=== PATIENT | female | born 1985 | race Caucasian/White ===

== ENCOUNTER 2019-05-31 08:59 | Emergency (ER) | payer BC, OTHER ==
[2019-05-31 09:04] VITALS: RESP 16; TEMP 97.6
[2019-05-31] MEDS ORDERED: SODIUM CHLORIDE 0.9% 1,000 ML IV STA (09:31)
[2019-05-31] MEDS ORDERED: ONDANSETRON 4 MG/2 ML VIAL IVP STA (09:31)
[2019-05-31] MEDS ORDERED: KETOROLAC 30 MG/ML 1 ML VIAL IVP STA (09:31)
--- NOTE | 2019-05-31 09:35 | ED ---
Abdominal Pain HPI - General Chief Complaint: Abdominal Pain Stated Complaint: abd pain Time Seen by Provider: 05/31/19 09:15 Source: patient Mode of arrival: ambulatory Limitations: no limitations - History of Present Illness Initial Comments: Patient is a 33-year-old female presenting to emergency Department with complaints of abdominal pain that been increasing over the past 2 weeks. Patient states she was having mild abdominal pain 2 weeks ago, went to urgent care and diagnosed her with a UTI with possible kidney infection. Patient was placed on antibiotics and her symptoms did improve. Patient states in the last 24 hours her pain has increased severely. She describes the pain as mostly left sided, upper quadrant. She has been having nausea and vomiting as well. No diarrhea, no fever. She denies any previous abdominal surgeries. She is unsure if she is or not. She does not have any vaginal complaints, no vaginal discharge, dysuria. She's been having regular bowel movements. Patient states she does take [place]'s for back injury and did take one at 8 AM this morning without improvement in her pain. She has no other complaints at this time. Upon arrival to the ER, her vital signs are stable. - Related Data Home Medications Medication Instructions Recorded Confirmed HYDROcodone/APAP 7.5-325MG [[place] 1 tab PO Q4H PRN 05/31/15 05/31/15 7.5-325] Previous Rx's Medication Instructions Recorded Dicyclomine [Bentyl] 20 mg PO QID #20 tablet 05/31/15 Ondansetron Odt [Zofran ODT] 4 mg PO Q8HR PRN #15 tab 05/31/15 Ketorolac [Toradol] 10 mg PO Q8HR #15 tab 05/31/19 Ondansetron Odt [Zofran Odt] 4 mg PO Q8HR PRN #10 tab 05/31/19 Allergies Allergy/AdvReac Type Severity Reaction Status Date / Time No Known Allergies Allergy Verified 05/31/19 09:04 Review of Systems ROS Statement: Those systems with pertinent positive or pertinent negative responses have been documented in the HPI. ROS Other: All systems not noted in ROS Statement are negative. 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 HEAD: Atraumatic, normocephalic. EYES: Pupils equal round and reactive to light, extraocular movements intact, sclera anicteric, conjunctiva are normal. ENT: TMs normal, nares patent, oropharynx clear without exudates. Moist mucous membranes. NECK: Normal range of motion, supple without lymphadenopathy or JVD. LUNGS: Breath sounds clear to auscultation bilaterally and equal. No wheezes rales or rhonchi. HEART: Regular rate and rhythm without murmurs, rubs or gallops. ABDOMEN: Tender to palpation of the left upper quadrants, and left abdomen. No right- sided abdominal pain, no suprapubic or lower quadrant pain.. Soft, normoactive bowel sounds. No guarding, no rebound. No masses appreciated. : Deferred EXTREMITIES: Normal range of motion, no pitting or edema. No clubbing or cyanosis. NEUROLOGICAL: Normal speech, normal gait. SKIN: Warm, Dry, normal turgor, no rashes or lesions noted. Limitations: no limitations Course Vital Signs 05/31/19 05/31/19 09:02 11:45 Temperature 97.6 F 97.6 F Pulse Rate 97 92 Respiratory 16 16 Rate Blood Pressure 118/79 112/70 O2 Sat by Pulse 100 100 Oximetry Medical Decision Making - Medical Decision Making Patient is a 33-year-old female presenting with left-sided, upper abdominal pain that has been intermittent for the last 2 weeks but more severe in the last 24 hours. No previous abdominal surgeries. Vital signs stable upon arrival. Lab work is unremarkable. Urine shows no signs of infection. CT of the abdomen shows no acute abnormalities. Patient was given fluids, pain control, Zofran. She doesn't report improvement and some of her symptoms. I discussed these findings with the patient and that this is most likely viral in nature. Patient did did now mention that she had a abnormal Pap smear performed approximately 6 months ago. She has yet to follow up regarding this abnormality. Patient continues to deny any vaginal complaints or lower abdominal pain. Patient is stable for discharge at this time. I did urge her to follow up with her [facility]. She is in agreement with this plan of care. Patient will be discharged with anti-inflammatories as well as Zofran as needed for nausea. Return parameters were discussed with the patient she verbalized understanding. Case discussed with Dr. Caro. - Lab Data Result diagrams: 05/31/19 09:17 05/31/19 09:17 Lab Results 05/31/19 05/31/19 05/31/19 Range/Units 09:17 09:17 09:17 WBC 10.9 H (3.8-10.6) k/uL RBC 4.82 (3.80-5.40) m/uL Hgb 14.5 (11.4-16.0) gm/dL Hct 43.6 (34.0-46.0) % MCV 90.4 (80.0-100.0) fL MCH 30.1 (25.0-35.0) pg MCHC 33.3 (31.0-37.0) g/dL RDW 11.7 (11.5-15.5) % Plt Count 315 (150-450) k/uL Neutrophils % 64 % Lymphocytes % 25 % Monocytes % 6 % Eosinophils % 2 % Basophils % 1 % Neutrophils # 7.0 (1.3-7.7) k/uL Lymphocytes # 2.7 (1.0-4.8) k/uL Monocytes # 0.6 (0-1.0) k/uL Eosinophils # 0.2 (0-0.7) k/uL Basophils # 0.1 (0-0.2) k/uL Sodium 138 (137-145) mmol/L Potassium 4.1 (3.5-5.1) mmol/L Chloride 106 (98-107) mmol/L Carbon Dioxide 24 (22-30) mmol/L Anion Gap 8 mmol/L BUN 18 H (7-17) mg/dL Creatinine 0.90 (0.52-1.04) mg/dL Est GFR (CKD-EPI)AfAm >90 (>60 ml/min/1.73 sqM) Est GFR (CKD-EPI)NonAf 86 (>60 ml/min/1.73 sqM) Glucose 112 H (74-99) mg/dL Plasma Lactic Acid [place] (0.7-2.0) mmol/L Calcium 9.8 (8.4-10.2) mg/dL Total Bilirubin 0.3 (0.2-1.3) mg/dL AST 26 (14-36) U/L ALT 24 (4-34) U/L Alkaline Phosphatase 81 (38-126) U/L Total Protein 7.8 (6.3-8.2) g/dL Albumin 4.5 (3.5-5.0) g/dL Amylase 52 (30-110) U/L Lipase 100 (23-300) U/L Urine Color Urine Appearance (Clear) Urine pH (5.0-8.0) Ur Specific [place] (1.001-1.035) Urine Protein (Negative) Urine Glucose (UA) (Negative) Urine Ketones (Negative) Urine Blood (Negative) Urine Nitrite (Negative) Urine Bilirubin (Negative) Urine Urobilinogen (<2.0) mg/dL Ur Leukocyte Esterase (Negative) Urine RBC (0-5) /hpf Urine WBC (0-5) /hpf Ur Squamous Epith Cells (0-4) /hpf Urine Bacteria (None) /hpf Urine Mucus (None) /hpf Urine HCG, Qual Not Detected (Not Detectd) 05/31/19 05/31/19 Range/Units 09:17 09:17 WBC (3.8-10.6) k/uL RBC (3.80-5.40) m/uL Hgb (11.4-16.0) gm/dL Hct (34.0-46.0) % MCV (80.0-100.0) fL MCH (25.0-35.0) pg MCHC (31.0-37.0) g/dL RDW (11.5-15.5) % Plt Count (150-450) k/uL Neutrophils % % Lymphocytes % % Monocytes % % Eosinophils % % Basophils % % Neutrophils # (1.3-7.7) k/uL Lymphocytes # (1.0-4.8) k/uL Monocytes # (0-1.0) k/uL Eosinophils # (0-0.7) k/uL Basophils # (0-0.2) k/uL Sodium (137-145) mmol/L Potassium (3.5-5.1) mmol/L Chloride (98-107) mmol/L Carbon Dioxide (22-30) mmol/L Anion Gap mmol/L BUN (7-17) mg/dL Creatinine (0.52-1.04) mg/dL Est GFR (CKD-EPI)AfAm (>60 ml/min/1.73 sqM) Est GFR (CKD-EPI)NonAf (>60 ml/min/1.73 sqM) Glucose (74-99) mg/dL Plasma Lactic Acid [place] 1.2 (0.7-2.0) mmol/L Calcium (8.4-10.2) mg/dL Total Bilirubin (0.2-1.3) mg/dL AST (14-36) U/L ALT (4-34) U/L Alkaline Phosphatase (38-126) U/L Total Protein (6.3-8.2) g/dL Albumin (3.5-5.0) g/dL Amylase (30-110) U/L Lipase (23-300) U/L Urine Color Yellow Urine Appearance Clear (Clear) Urine pH 6.5 (5.0-8.0) Ur Specific [place] 1.027 (1.001-1.035) Urine Protein Trace H (Negative) Urine Glucose (UA) Negative (Negative) Urine Ketones Negative (Negative) Urine Blood Negative (Negative) Urine Nitrite Negative (Negative) Urine Bilirubin Negative (Negative) Urine Urobilinogen <2.0 (<2.0) mg/dL Ur Leukocyte Esterase Small H (Negative) Urine RBC 1 (0-5) /hpf Urine WBC 1 (0-5) /hpf Ur Squamous Epith Cells 2 (0-4) /hpf Urine Bacteria Rare H (None) /hpf Urine Mucus Few H (None) /hpf Urine HCG, Qual (Not Detectd) Disposition Clinical Impression: Abdominal pain, Gastroenteritis Disposition: HOME SELF-CARE Condition: Stable Instructions (If sedation given, give patient instructions): Abdominal Pain (ED) Additional Instructions: Please return to the Emergency Department if symptoms worsen or any other concerns. May alternate at home pain medication with ibuprofen. Take Zofran as needed for nausea. Follow-up with PCP/ OBGYN as discussed. Prescriptions: Ketorolac [Toradol] 10 mg PO Q8HR #15 tab Ondansetron Odt [Zofran Odt] 4 mg PO Q8HR PRN #10 tab PRN Reason: Nausea Is patient prescribed a controlled substance at d/c from ED?: No Referrals: None,Stated [Primary Care Provider] - 1-2 days Ilana Sahu MD [STAFF PHYSICIAN] - 1-2 days
[2019-05-31 09:40] LABS: Basophils # (A) 0.1 k/uL (0-0.2); Basophils % (A) 1 %; Eosinophils # (A) 0.2 k/uL (0-0.7); Eosinophils % (A) 2 %; HCT 43.6 % (34.0-46.0); HGB 14.5 gm/dL (11.4-16.0); Lymphocytes # (A) 2.7 k/uL (1.0-4.8); Lymphocytes % (A) 25 %; MCH 30.1 pg (25.0-35.0); MCHC 33.3 g/dL (31.0-37.0); MCV 90.4 fL (80.0-100.0); Mean Platelet Volume 8.1; Monocytes # (A) 0.6 k/uL (0-1.0); Monocytes % (A) 6 %; Neutrophils % (A) 64 %; Platelet Count 315 k/uL (150-450); RBC 4.82 m/uL (3.80-5.40); RDW 11.7 % (11.5-15.5); WBC 10.9 k/uL (3.8-10.6)
[2019-05-31 09:47] LABS: Appearance,Urine Clear (Clear); Bacteria,Urine Rare /hpf; Bilirubin,Urine Negative (Negative); Blood,Urine Negative (Negative); Color,Urine Yellow; Glucose,Urine (UA) Negative (Negative); Ketones,Urine Negative (Negative); Leukocyte Esterase,Urine Small (Negative); Mucus,Urine Few /hpf; Nitrite,Urine Negative (Negative); PH, Urine 6.5 (5.0-8.0); Protein,Urine Trace (Negative); RBC,Urine 1 /hpf (0-5); Specific Gravity,Urine 1.027 (1.001-1.035); Squamous Epithelial Cell,Urine 2 /hpf (0-4); Urobilinogen,Urine <2.0 mg/dL (<2.0); WBC,Urine 1 /hpf (0-5)
[2019-05-31 09:50] LABS: ALT 24 U/L (4-34); AST 26 U/L (14-36); African American GFR (CKD) >90 (>60 ml/min/1.73 sqM); Albumin 4.5 g/dL (3.5-5.0); Alkaline Phosphatase 81 U/L (38-126); Amylase 52 U/L (30-110); Anion Gap 8 mmol/L; Blood Urea Nitrogen 18 mg/dL (7-17); Calcium 9.8 mg/dL (8.4-10.2); Carbon Dioxide 24 mmol/L (22-30); Chloride 106 mmol/L (98-107); Glucose 112 mg/dL (74-99); Non-African American GFR(CKD) 86 (>60 ml/min/1.73 sqM); Potassium 4.1 mmol/L (3.5-5.1); Sodium 138 mmol/L (137-145); Total Bilirubin 0.3 mg/dL (0.2-1.3); Total Protein 7.8 g/dL (6.3-8.2)
[2019-05-31] MEDS ORDERED: MORPHINE SULFATE 4 MG/ML SYRINGE IVP STA (10:10)
--- NOTE | 2019-05-31 10:31 | CT ---
EXAMINATION TYPE: CT abdomen pelvis w con DATE OF EXAM: 05/31/2019 REFERENCE: Previous examination dated 05/31/2015. HISTORY: abdominal pain, acute, nonlocalized HISTORY: Left sided mid Abdominal pain for 2 weeks. Severe pain today. CT DLP: 1089.7 mGy Automated exposure control for dose reduction was used. TECHNIQUE: Helical acquisition through the abdomen and pelvis was obtained following the oral ingesti on of without Oral Contrast and following intravenous administration of 100 mL of Isovue 300. The minnie a was reformatted in axial, coronal and sagittal projections. FINDINGS: Visualized portions of the lungs are clear. There is no pleural or pericardial fluid. The heart is not enlarged. Within the abdomen, the liver, spleen and gallbladder are normal. Both adrenal glands are normal. Both kidneys demonstrate function and appear morphologically normal. The pancreas is unremarkable. There is no significant retroperitoneal, iliac or inguinal adenopathy. There is follicular change in both ovaries. The uterus is unremarkable. The bladder is unremarkable. There is no significant diverticular change and there is no radiographic evidence of diverticulitis. The appendix is normal. Small bowel loops are normal in caliber. There is no free air or free fluid seen. No bony lesion is seen. IMPRESSION: NORMAL CT SCAN OF THE ABDOMEN AND PELVIS. I DO NOT SEE A CAUSE FOR THE PATIENT'S CLINICAL SYNDROME.
[2019-05-31 11:47] VITALS: BP 112/70; PULSE 92
== END 2019-05-31 11:46 | disposition home or self-care (01) ==
LOC: EC 08:59
DX: K52.9 Noninfective gastroenteritis and colitis, unspecified (principal)
CPT/HCPCS: 99284; 96374; 96375 ×2; 96361; 36415; 80053; 82150; 83605; 83690; 85025; 81001; 81025; 74177; J2270; J2405; J1885; Q9967

== ENCOUNTER → 2021-04-07 | Outpatient (CLI) | payer OTHER ==
--- NOTE | 2021-04-07 16:48 | MR ---
EXAMINATION TYPE: MR knee RT wo con DATE OF EXAM: 04/07/2021 COMPARISON: Plain film 03/07/2021 HISTORY: Whole right knee pain and swelling for 4 years due to accident breaking right ankle. TECHNIQUE: Multiplanar, multisequence imaging of the right knee is performed without IV contrast. FINDINGS: MEDIAL MENISCUS: Posterior horn the medial meniscus shows some irregular signal, suggestion of some l inear increased signal extending to the undersurface on sagittal image #8 LATERAL MENISCUS: Anterior and posterior horns are intact without tear. CRUCIATE LIGAMENTS: The anterior and posterior cruciate ligaments are intact and unremarkable. COLLATERAL LIGAMENTS: Some mild increase signal along the medial collateral ligament could be related to strain. EXTENSOR MECHANISM: Visualized quadriceps and patellar tendons are intact. EFFUSION: Minimal suprapatellar fluid present POPLITEAL CYST: No popliteal/medina cyst. 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 OTHER: There is some edema present at anterior to the patellar tendon. IMPRESSION: Chondromalacia patella. Difficult to exclude a tear the posterior horn of the medial meniscus, possib le strain of the medial collateral ligament, soft tissue edema.
== END ==
LOC: RADMRIMAIN 15:43
PROVIDERS: ATTEND Orthopaedic Surgery
DX: M22.41 Chondromalacia patellae, right knee (principal)

== ENCOUNTER → 2021-06-05 | Outpatient (CLI) | payer BC, OTHER ==
--- NOTE | 2021-06-06 01:07 | MR ---
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 CONTRAST: Standard multiplanar, multisequence MRI departmental protocol images were obtained without contrast a nd with 9.5 mL intravenous Gadavist gadolinium contrast. The cervical vertebra have normal alignment. Disc spaces are fairly normal. There is no cervical disc herniation. Cervical spinal cord has normal signal pattern. There is no edema. Posterior elements ar e intact. Brainstem is intact. Cerebellum appears intact. The thoracic vertebra have normal alignment. There is no significant compression deformity. There is minor anterior spurring in the midthoracic spine. Thoracic spinal cord has normal signal pattern. The re is no edema. There is no evidence of thoracic spinal stenosis. There is no thoracic paraspinal mas s. The thoracic spinal canal is widely patent. There is no evidence of a syrinx. Thoracic neural fora sharri appear normal. The lumbar vertebrae have normal spacing and alignment. There is no compression fracture. There is no evidence of any significant disc bulging. Lumbar spinal canal is fairly normal. The lumbar nerve chau ts appear normal. Neural foramina are widely patent. There is no lumbar paraspinal mass. The visualiz ed sacroiliac joints appear intact. The contrast images show no pathologic enhancement. IMPRESSION: Negative MR scan of the cervical thoracic and lumbar spine. No evidence of spinal stenosis or disc he rniation. No fracture. No evidence of a mass.
== END | disposition home or self-care (01) ==
LOC: RADMRIMAIN 17:44
PROVIDERS: ATTEND Orthopaedic Surgery
DX: M54.2 Cervicalgia (principal); M54.50 Low back pain, unspecified; M54.6 Pain in thoracic spine
CPT/HCPCS: 72156; 72157; 72158; A9585

== ENCOUNTER → 2021-07-13 | Day surgery (SDC) | payer BC, OTHER ==
[2021-07-12 09:23] VITALS: BMI 32.1
--- NOTE | 2021-07-12 20:50 | HP ---
HISTORY AND PHYSICAL DATE OF SURGERY: 07/13/2021 Bertha Last is a 35-year-old patient seen with progressive right knee pain. We discussed options with her. She elected to proceed with right knee arthroscopy. Consent was obtained. PAST MEDICAL HISTORY: Chronic low back pain. PAST SURGICAL HISTORY: Mandibular surgery and knee surgery. DAILY MEDICATIONS: Hydrocodone, Motrin. ALLERGIES: NONE KNOWN. SOCIAL HISTORY: She denies current tobacco use. PHYSICAL EVALUATION OF THE RIGHT KNEE: Her range of motion is zero to 130. Mild effusion. Tenderness along the medial joint line. Positive medial Sariah's. Ligaments stable. Hip rotation without pain. Distal neurovascular exam is intact. Radiographs of the right knee revealed no abnormality. MRI right knee revealed medial meniscal tear as well as chondromalacia. IMPRESSION: 1. Internal derangement of right knee with medial meniscal tear. 2. Chronic low back pain. 3. Chronic opioid use. PLAN: Right knee arthroscopy with partial medial meniscectomy and debridement. MMODL / IJN: [id number] /
[~2021-07-13] MED LIST: DEXAMETHASONE SOD PHOSPHATE 4 MG/ML 1 ML VIAL IV ONE; HYDROmorphone 0.5 MG/0.5 ML SYRINGE IVP PRN; LACTATED RINGERS 1,000 ML IV SCH; LIDOCAINE 1% (10MG/ML) FOR IV START INTRADERMA PRN; MIDAZOLAM 2 MG/2 ML VIAL IV PRN; ONDANSETRON 4 MG/2 ML VIAL IVP ONE
[2021-07-13 14:42] VITALS: BP 150/95; PULSE 78; RESP 18; TEMP 97.8
== END ==
LOC: OR 13:50
PROVIDERS: ATTEND Orthopaedic Surgery
DX: M23.91 Unspecified internal derangement of right knee (principal); Z53.8 Procedure and treatment not carried out for other reasons; G89.29 Other chronic pain; M54.50 Low back pain, unspecified; Z79.891 Long term (current) use of opiate analgesic; Z79.899 Other long term (current) drug therapy

== ENCOUNTER 2021-07-30 13:23 | Emergency (ER) | payer BC, OTHER ==
[2021-07-30 13:45] VITALS: TEMP 98
[2021-07-30 14:32] LABS: Appearance,Urine Clear (Clear); Bacteria,Urine Occasional /hpf; Bilirubin,Urine Negative (Negative); Blood,Urine Moderate (Negative); Color,Urine Yellow; Glucose,Urine (UA) Negative (Negative); Ketones,Urine 2+ (Negative); Leukocyte Esterase,Urine Small (Negative); Mucus,Urine Few /hpf; Nitrite,Urine Negative (Negative); PH, Urine 6.5 (5.0-8.0); Protein,Urine Trace (Negative); RBC,Urine 7 /hpf (0-5); Specific Gravity,Urine 1.024 (1.001-1.035); Squamous Epithelial Cell,Urine 2 /hpf (0-4); Urobilinogen,Urine <2.0 mg/dL (<2.0); WBC,Urine 7 /hpf (0-5)
--- NOTE | 2021-07-30 14:41 | ED ---
Female Urogenital HPI - General Chief complaint: Vaginal Bleeding Stated complaint: Abd pain Time Seen by Provider: 07/30/21 14:15 Source: patient, RN notes reviewed Mode of arrival: ambulatory Limitations: no limitations - History of Present Illness Initial comments: This is a 36-year-old female who presents to the emergency department with abdominal pain and vaginal bleeding. States that this began 2 days ago. The pain is in the left lower quadrant. States that the pain has continued to get worse. Believes that she is approximately 6 weeks . She has had one in the past and had an . She is hoping to proceed with this if it is viable. She has not yet had an appointment with her OB, Dr. Gonzalez. Denies fevers, chills, or vomiting, but does report nausea. Aside from this recent nausea, she has not experienced any morning sickness. She contacted her pillowcase maker's office last week regarding the pain, and was told by the nurse that the left lower quadrant pain is to be expected. She has not taken anything for this pain, as she was not sure what would be safe to take in . MD Complaint: vaginal bleeding Onset/Timin -: days(s) Quality: cramping, sharp, stabbing Consistency: constant Improves with: none Worsens with: none Patient : Yes Number of weeks : 6 - Related Data Home Medications Medication Instructions Recorded Confirmed No Known Home Medications 07/30/21 07/30/21 Allergies Allergy/AdvReac Type Severity Reaction Status Date / Time No Known Allergies Allergy Verified 07/30/21 15:35 Review of Systems ROS Statement: Those systems with pertinent positive or pertinent negative responses have been documented in the HPI. ROS Other: All systems not noted in ROS Statement are negative. Constitutional: Denies: fever, chills ENT: Denies: ear pain, throat pain Respiratory: Denies: cough, dyspnea Cardiovascular: Denies: chest pain, palpitations Gastrointestinal: Reports: abdominal pain. Denies: nausea, vomiting, diarrhea Genitourinary: Reports: other (vaginal bleeding). 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 Absent: respiratory distress, wheezes, rales, rhonchi, stridor Cardiovascular Exam: Present: regular rate, normal rhythm, normal heart sounds. Absent: systolic murmur, diastolic murmur, rubs, gallop, clicks GI/Abdominal exam: Present: soft, tenderness (bilateral lower quadrants), normal bowel sounds. Absent: distended, guarding Neurological exam: Present: alert, oriented X3, CN II-XII intact Psychiatric exam: Present: normal affect, normal mood Skin exam: Present: warm, dry, intact, normal color. Absent: rash Course Vital Signs 07/30/21 07/30/21 07/30/21 13:42 15:44 18:28 Temperature 98 F Pulse Rate 99 82 76 Respiratory 16 18 18 Rate Blood Pressure 136/89 128/86 125/70 O2 Sat by Pulse 100 100 97 Oximetry Medical Decision Making - Medical Decision Making This is a 36-year-old female who presents to the emergency department with 2 days of LLQ abdominal pain and vaginal bleeding. Patient states she is 6 weeks , but had not yet seen an pillowcase maker. Obstetrics ultrasound obtained, and confirmed a single live IUP. It did also note a complex right ovarian cyst. I spoke with Dr. Sahu regarding the complex cyst. She states that this will probably need to be reevaluated at 12 weeks and then again at 18 weeks, but no additional workup is needed at this time. The biggest concern with ovarian cysts in is ovarian torsion, most common during the first trimester, and the patient will need strict return precautions regarding this possibility. Lab work revealed a mildly elevated WBC count, which is a normal finding in with her body under stress. Also discussed that abdominal pain is rather common in . The pain at this point is the most severe on the left, however the complex cyst is on the right. Patient requests treatment for nausea and pain. Discussed that first like treatment for nausea and vomiting in is Unisom and B6, however unisom will cause her to be sleepy. States that she needs to drive home and does not want to take unisom. We also discussed Reglan, which is a second line treatment. It has not been shown to have any adverse effects on in the first trimester, however more testing is still needed. Patient verbalizes understanding would like try the B6 and Reglan, both of which were administered in the emergency department. Tylenol administered for pain. Advised the patient that Tylenol is safe in , however ibuprofen is not and should be avoided. Patient advised to contact her pillowcase maker's office tomorrow and request a sooner appointment for an ER follow-up. When the patient used the restroom in the ER, she did not notice any blood in the urine or when wiping. Patient declines pelvic exam at this time, and will follow up with OB for this. Patient was eating Jello and drinking apple juice without difficulty before discharge. Return precautions reviewed in depth, especially regarding ovarian torsion, the patient is instructed to return to the emergency department if symptoms worsen, including but not limited to, increasing pain, increasing bleeding, or uncontr ollable nausea. Patient verbalized understanding. This case was discussed in detail with the attending ED physician. Presentation, findings, and treatment plan discussed in detail as well. - Lab Data Result diagrams: 07/30/21 14:38 07/30/21 14:38 Lab Results 07/30/21 07/30/21 07/30/21 Range/Units 14:04 14:04 14:38 WBC 13.6 H (3.8-10.6) k/uL RBC 5.02 (3.80-5.40) m/uL Hgb 15.8 (11.4-16.0) gm/dL Hct 44.7 (34.0-46.0) % MCV 89.1 (80.0-100.0) fL MCH 31.5 (25.0-35.0) pg MCHC 35.3 (31.0-37.0) g/dL RDW 11.8 (11.5-15.5) % Plt Count 304 (150-450) k/uL MPV 8.4 Neutrophils % 81 % Lymphocytes % 12 % Monocytes % 4 % Eosinophils % 1 % Basophils % 1 % Neutrophils # 11.0 H (1.3-7.7) k/uL Lymphocytes # 1.6 (1.0-4.8) k/uL Monocytes # 0.6 (0-1.0) k/uL Eosinophils # 0.1 (0-0.7) k/uL Basophils # 0.1 (0-0.2) k/uL PT (9.0-12.0) sec INR (<1.2) APTT (22.0-30.0) sec Sodium (137-145) mmol/L Potassium (3.5-5.1) mmol/L Chloride (98-107) mmol/L Carbon Dioxide (22-30) mmol/L Anion Gap mmol/L BUN (7-17) mg/dL Creatinine (0.52-1.04) mg/dL Est GFR (CKD-EPI)AfAm (>60 ml/min/1.73 sqM) Est GFR (CKD-EPI)NonAf (>60 ml/min/1.73 sqM) Glucose (74-99) mg/dL Calcium (8.4-10.2) mg/dL Total Bilirubin (0.2-1.3) mg/dL AST (14-36) U/L ALT (4-34) U/L Alkaline Phosphatase (38-126) U/L Total Protein (6.3-8.2) g/dL Albumin (3.5-5.0) g/dL HCG, Quant mIU/mL Urine Color Yellow Urine Appearance Clear (Clear) Urine pH 6.5 (5.0-8.0) Ur Specific [place] 1.024 (1.001-1.035) Urine Protein Trace H (Negative) Urine Glucose (UA) Negative (Negative) Urine Ketones 2+ H (Negative) Urine Blood Moderate H (Negative) Urine Nitrite Negative (Negative) Urine Bilirubin Negative (Negative) Urine Urobilinogen <2.0 (<2.0) mg/dL Ur Leukocyte Esterase Small H (Negative) Urine RBC 7 H (0-5) /hpf Urine WBC 7 H (0-5) /hpf Ur Squamous Epith Cells 2 (0-4) /hpf Urine Bacteria Occasional H (None) /hpf Urine Mucus Few H (None) /hpf Urine HCG, Qual Detected (Not Detectd) Blood Type Blood Type Recheck Bld Type Recheck Status 07/30/21 07/30/21 07/30/21 Range/Units 14:38 14:38 15:13 WBC (3.8-10.6) k/uL RBC (3.80-5.40) m/uL Hgb (11.4-16.0) gm/dL Hct (34.0-46.0) % MCV (80.0-100.0) fL MCH (25.0-35.0) pg MCHC (31.0-37.0) g/dL RDW (11.5-15.5) % Plt Count (150-450) k/uL MPV Neutrophils % % Lymphocytes % % Monocytes % % Eosinophils % % Basophils % % Neutrophils # (1.3-7.7) k/uL Lymphocytes # (1.0-4.8) k/uL Monocytes # (0-1.0) k/uL Eosinophils # (0-0.7) k/uL Basophils # (0-0.2) k/uL PT 10.1 (9.0-12.0) sec INR 0.9 (<1.2) APTT 25.2 (22.0-30.0) sec Sodium 135 L (137-145) mmol/L Potassium 4.2 (3.5-5.1) mmol/L Chloride 102 (98-107) mmol/L Carbon Dioxide 21 L (22-30) mmol/L Anion Gap 12 mmol/L BUN 13 (7-17) mg/dL Creatinine 0.68 (0.52-1.04) mg/dL Est GFR (CKD-EPI)AfAm >90 (>60 ml/min/1.73 sqM) Est GFR (CKD-EPI)NonAf >90 (>60 ml/min/1.73 sqM) Glucose 91 (74-99) mg/dL Calcium 10.1 (8.4-10.2) mg/dL Total Bilirubin 0.6 (0.2-1.3) mg/dL AST 29 (14-36) U/L ALT 30 (4-34) U/L Alkaline Phosphatase 83 (38-126) U/L Total Protein 8.7 H (6.3-8.2) g/dL Albumin 4.9 (3.5-5.0) g/dL HCG, Quant 29719.9 mIU/mL Urine Color Urine Appearance (Clear) Urine pH (5.0-8.0) Ur Specific [place] (1.001-1.035) Urine Protein (Negative) Urine Glucose (UA) (Negative) Urine Ketones (Negative) Urine Blood (Negative) Urine Nitrite (Negative) Urine Bilirubin (Negative) Urine Urobilinogen (<2.0) mg/dL Ur Leukocyte Esterase (Negative) Urine RBC (0-5) /hpf Urine WBC (0-5) /hpf Ur Squamous Epith Cells (0-4) /hpf Urine Bacteria (None) /hpf Urine Mucus (None) /hpf Urine HCG, Qual (Not Detectd) Blood Type O Positive Blood Type Recheck No Previous Record Bld Type Recheck Status ABR ONLY - Radiology Data Radiology results: report reviewed, image reviewed Disposition Clinical Impression: 6 weeks gestation of , Complex cyst of right ovary Disposition: HOME SELF-CARE Instructions (If sedation given, give patient instructions): Nausea and Vomiting in (ED), (ED), at 7 to 10 Weeks (ED) Additional Instructions: Return to the emergency department if you develop symptoms including but not limited to, increasing pain, sudden or sharp onset of different pain, especially on the right side with the complex cyst, fevers/chills, or uncontrollable nausea/vomiting. Contact your pillowcase maker's office for a sooner appointment/ER follow-up. Follow-up with your primary care provider in 1 to 2 days. Vitamin B6 and Unisom advised for nausea and vomiting in . Is patient prescribed a controlled substance at d/c from ED?: No Referrals: Deanna Haley MD [Primary Care Provider] - 1-2 days
[2021-07-30 14:48] LABS: Basophils # (A) 0.1 k/uL (0-0.2); Basophils % (A) 1 %; Eosinophils # (A) 0.1 k/uL (0-0.7); Eosinophils % (A) 1 %; HCT 44.7 % (34.0-46.0); HGB 15.8 gm/dL (11.4-16.0); Lymphocytes # (A) 1.6 k/uL (1.0-4.8); Lymphocytes % (A) 12 %; MCH 31.5 pg (25.0-35.0); MCHC 35.3 g/dL (31.0-37.0); MCV 89.1 fL (80.0-100.0); Mean Platelet Volume 8.4; Monocytes # (A) 0.6 k/uL (0-1.0); Monocytes % (A) 4 %; Neutrophils % (A) 81 %; Platelet Count 304 k/uL (150-450); RBC 5.02 m/uL (3.80-5.40); RDW 11.8 % (11.5-15.5); WBC 13.6 k/uL (3.8-10.6)
[2021-07-30 15:00] LABS: ALT 30 U/L (4-34); AST 29 U/L (14-36); African American GFR (CKD) >90 (>60 ml/min/1.73 sqM); Albumin 4.9 g/dL (3.5-5.0); Alkaline Phosphatase 83 U/L (38-126); Anion Gap 12 mmol/L; Blood Urea Nitrogen 13 mg/dL (7-17); Calcium 10.1 mg/dL (8.4-10.2); Carbon Dioxide 21 mmol/L (22-30); Chloride 102 mmol/L (98-107); Glucose 91 mg/dL (74-99); Non-African American GFR(CKD) >90 (>60 ml/min/1.73 sqM); Potassium 4.2 mmol/L (3.5-5.1); Sodium 135 mmol/L (137-145); Total Bilirubin 0.6 mg/dL (0.2-1.3); Total Protein 8.7 g/dL (6.3-8.2)
[2021-07-30 15:06] LABS: INR 0.9 (<1.2); Partial Thromboplastin Time 25.2 sec (22.0-30.0); Prothrombin Time 10.1 sec (9.0-12.0)
[2021-07-30] MEDS ORDERED: SODIUM CHLORIDE 0.9% 1,000 ML IV ONE (15:27)
[2021-07-30 15:43] LABS: HCG,Quantitative Serum 44926.9 mIU/mL
--- NOTE | 2021-07-30 15:44 | US ---
EXAMINATION TYPE: Transabdominal DATE OF EXAM: 07/30/2021 3:15 PM COMPARISON: NONE CLINICAL HISTORY: ab pain/vaginal bleeding. pelvic pain. spotting for 1 week EXAM PERFORMED: Transvaginal (TV) and Transabdominal (TA) EXAM MEASUREMENTS: GESTATIONAL AGE / DATING Physician Established: Not yet established Dates by LMP: (6 weeks/4 days) EDC: 03/21/22 Dates by First Scan: No previous this is first scan Dates by Current Scan for: (6 weeks/4 days) EDC: 03/21/22 MATERNAL ANATOMY Uterus: 8.2 x 4.7 x 5.3cm Right adnexa/ Right Ovary: complex/solid/heterogeneous area right adnexa = 5.9 x 2.9 x 4.1cm ?? enlar ged right ovary vs. other etiology Left Ovary: 3.1 x 1.8 x 2.1cm - cystic area = 1.5 x .2cm Post CDS / left Adnexa: appears wnl Presence of free fluid: no GESTATION / SURVEY CRL: 0.7cm (6 weeks/4 days) Yolk Sac (normal less than 6mm): 0.3cm Heart Rate: 123 bpm Rhythm: Normal IUP: Viable IUP Date of LMP: 06/14/21 Beta HcG (if available): Not available at this time Anteverted uterus. Single live intrauterine gestation as gestational sac, yolk sac, and pole ar e present. No free fluid in pelvic cul-de-sac. Left ovary is seen. Left ovary has 1.5 cm thin-walled cyst possible corpus luteal cyst. Right adnexa shows heterogeneous structure suspected asymmetrically enlarged right ovary. IMPRESSION: Single live intrauterine gestation is confirmed, mean crown-rump length is 0.7 cm corresp onding to 6 week 4 day old fetus. Consider serial beta hCG and ultrasound follow-up based on clinical correlation.
[2021-07-30 16:05] VITALS: RESP 18
[2021-07-30] MEDS ORDERED: ACETAMINOPHEN TAB 325 MG TAB PO STA (16:58)
[2021-07-30] MEDS ORDERED: METOCLOPRAMIDE 5 MG/ML 2 ML VIAL IVP STA (16:58)
[2021-07-30] MEDS ORDERED: PYRIDOXINE 100 MG/ML 1 ML VIAL IVP ONE (16:58)
[2021-07-30 18:29] VITALS: BP 125/70; PULSE 76
== END 2021-07-30 18:32 | disposition home or self-care (01) ==
LOC: EC 13:23
DX: O34.81 Maternal care for other abnormalities of pelvic organs, first trimester (principal); N83.291 Other ovarian cyst, right side; Z3A.01 Less than 8 weeks gestation of pregnancy
CPT/HCPCS: 99284; 96374; 96375; 96361; 36415; 86900; 86901; 80053; 85025; 85610; 85730; 81001; 81025; 84702; 76801; 76817; J3415; J2765

== ENCOUNTER → 2022-05-18 | Outpatient (CLI) | payer OTHER ==
--- NOTE | 2022-05-18 11:12 | XR ---
EXAM TYPE: LUMBAR SPINE X RAY SERIES COMPARISON: NONE HISTORY: Pain TECHNIQUE: 4 views are submitted. FINDINGS: Alignment is anatomic. The pedicles are intact. The transverse processes are intact. There is no s pondylolysis or spondylolisthesis. Facet arthropathy L4-5 and L5-S1. IMPRESSION: 1. Facet arthropathy L4-5 and L5-S1..
== END | disposition home or self-care (01) ==
LOC: RADXRMAIN 10:11
PROVIDERS: ATTEND Physical Medicine & Rehabilitation
DX: M47.817 Spondylosis without myelopathy or radiculopathy, lumbosacral region (principal)
CPT/HCPCS: 72110

== ENCOUNTER 2023-03-18 06:07 | Inpatient (IN) | payer OTHER ==
[2023-03-18] MEDS ORDERED: CITRIC ACID-SODIUM CITRATE 15 ML CUP PO ONE (06:23)
[2023-03-18] MEDS ORDERED: OXYTOCIN 10 UNIT/ML 1 ML VIAL IM PRN (06:23)
[2023-03-18] MEDS ORDERED: miSOPROStoL 200 MCG TAB PO PRN (06:23)
[2023-03-18] MEDS ORDERED: CARBOPROST TROMETHAMINE 250 MCG/ML 1 ML AMP IM PRN (06:23)
[2023-03-18] MEDS ORDERED: TRANEXAMIC 1,000 MG/100ML-NACL 1,000 MG in EMPTY BAG 1 BAG IV PRN (06:23)
[2023-03-18] MEDS ORDERED: METHYLERGONOVINE 0.2 MG/ML 1 ML AMP IM PRN (06:23)
[2023-03-18 06:55] LABS: Glucose,Whole Blood 82 mg/dL (70-110)
[2023-03-18 07:17] LABS: Basophils # (A) 0.1 k/uL (0-0.2); Basophils % (A) 1 %; Eosinophils # (A) 0.1 k/uL (0-0.7); Eosinophils % (A) 1 %; HCT 38.3 % (34.0-46.0); HGB 13.2 gm/dL (11.4-16.0); Lymphocytes # (A) 2.6 k/uL (1.0-4.8); Lymphocytes % (A) 20 %; MCH 30.2 pg (25.0-35.0); MCHC 34.4 g/dL (31.0-37.0); Mean Platelet Volume 10.5; Monocytes # (A) 0.7 k/uL (0-1.0); Monocytes % (A) 6 %; Neutrophils # (A) 9.2 k/uL (1.3-7.7); Neutrophils % (A) 71 %; Platelet Count 219 k/uL (150-450); RBC 4.35 m/uL (3.80-5.40); RDW 12.7 % (11.5-15.5); WBC 12.9 k/uL (3.8-10.6)
[2023-03-18] MEDS: LACTATED RINGERS 1,000 ML IV SCH ×5 (07:24→23:55)
[2023-03-18] MEDS ORDERED: DEXAMETHASONE SOD PHOSPHATE 4 MG/ML 1 ML VIAL ONE (08:00)
[2023-03-18] MEDS ORDERED: OXYTOCIN 30 UNITS/500 ML NS BAG IV ONE (08:00)
[2023-03-18] MEDS ORDERED: KETOROLAC 15 MG/ML 1 ML VIAL ONE (08:00)
[2023-03-18] MEDS ORDERED: ONDANSETRON 4 MG/2 ML VIAL ONE (08:00)
[2023-03-18] MEDS ORDERED: fentaNYL (PF) 50 MCG/ML 2 ML AMP ONE (08:00)
[2023-03-18] MEDS ORDERED: MORPHINE SULFATE (PF) 0.3 MG/0.3 ML SYR ONE (08:00)
[2023-03-18] MEDS ORDERED: diphenhydrAMINE 50 MG/ML 1 ML VIAL IVP PRN ×3 (09:09→09:37)
[2023-03-18] MEDS ORDERED: NALOXONE 0.4 MG/ML 1 ML VIAL IV PRN ×2 (09:09→09:37)
[2023-03-18] MEDS ORDERED: ONDANSETRON 4 MG/2 ML VIAL IVP PRN ×2 (09:09→09:37)
--- NOTE | 2023-03-18 09:22 | P.HPOB ---
History of Present Illness H&P Date: 03/18/23 Chief Complaint: Schedueled primary with bilateral salpingectomy Ms. Last is a 37 year old at 39 weeks and 0 days with EDC of 03/25/2023 (by LMP consistent with 20 week US) who presents for scheduled primary section for breech presentation. The has been complicated by advanced maternal age, iron deficiency anemia, and insulin-co ntrolled gestational diabetes (regimen was 15 units of Novolin N qHS). On most recent growth ultrasound at 37 weeks the fetus was measuring in the 57%ile for weight. Obstetric history: 2 VTOP work-up: blood type O positive, antibody negative, rubella immune, VDRL non-reactive, HBsAg negative, HIV negative, HCV Ab reactive > Hep C RNA Quant not detected, gonorrhea negative, chlamydia negative, failed 1 and 3 hour GTT, GBS positive. s/p TDap on 12/24/2022. 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 Past Anesthesia/Blood Transfusion Reactions: No Reported Reaction Past Psychological History: No Psychological Hx Reported Smoking Status: Never smoker Past Alcohol Use History: None Reported Past Drug Use History: None Reported - Past Family History Mother Family Medical History: Cancer Medications and Allergies Home Medications Medication Instructions Recorded Confirmed Type Aspirin 81 mg PO DAILY 03/18/23 03/18/23 History Insulin Aspart [NovoLOG] 20 units SQ HS 03/18/23 03/18/23 History Vit No.179/Iron/Folic 1 tab PO DAILY 03/18/23 03/18/23 History [ Tablet] Allergies Allergy/AdvReac Type Severity Reaction Status Date / Time No Known Allergies Allergy Verified 03/18/23 06:21 Exam Vital Signs Temp Pulse Resp BP Pulse Ox 03/18/23 06:21 97.6 F 102 H 16 136/89 98 Intake and Output 03/17/23 03/18/23 03/18/23 22:59 06:59 14:59 Other: Weight 107.501 kg Focused physical exam is performed. This is a healthy-appearing in no apparent distress. Breathing is non-labored. Abdomen is gravid and non-tender. Cervical is deferred. Extremeties non-tender and non-edematous. heart t ones are Category I and tocometer is graphing contractions every 4-5 minutes. Results Result Diagrams: 03/18/23 06:40 Abnormal Lab Results - Last 24 Hours (Table) 03/18/23 Range/Units 06:40 WBC 12.9 H (3.8-10.6) k/uL Neutrophils # 9.2 H (1.3-7.7) k/uL Assessment and Plan Assessment: 37 year old at 39 weeks and 0 days presenting for scheduled primary section with bilateral salpingectomy Plan: Admit, NPO, mIVF, pre-operative IV Ancef, protocol Time with Patient: Less than 30
[2023-03-18 09:32] LABS: Amphetamine Screen,Urine Not Detected (NotDetected); Barbiturate Screen,Urine Not Detected (NotDetected); Benzodiazepines Screen,Urine Not Detected (NotDetected); Cocaine Screen,Urine Not Detected (NotDetected); Methadone Screen, Urine Not Detected (NotDetected); Opiate Screen,Urine Not Detected (NotDetected); Oxycodone Screen, Urine Not Detected (NotDetected); Phencyclidine Screen,Urine Not Detected (NotDetected); Tricyclic Antidepressant,Urine Not Detected (NotDetected); Urn Cannabinoid Scrn Not Detected (NotDetected)
[2023-03-18] MEDS ORDERED: diphenhydrAMINE 25 MG CAP PO PRN (09:37)
[2023-03-18] MEDS ORDERED: METOCLOPRAMIDE 5 MG/ML 2 ML VIAL IVP PRN (09:37)
[2023-03-18] MEDS ORDERED: diphenhydrAMINE 50 MG CAP PO PRN (09:37)
[2023-03-18] MEDS ORDERED: ZOLPIDEM 5 MG TAB PO PRN (09:37)
--- NOTE | 2023-03-18 09:37 | P.OP ---
Date of Procedure: 03/18/23 Preoperative Diagnosis: 1. Term IUP at 39 weeks 2. Breech position 3. Insulin-controlled Gestational Diabetes 4. Desire for permanent sterilization 5. Risk Reduction Postoperative Diagnosis: Same Procedure(s) Performed: Primary Lower Transverse Section with Bilateral Salpingectomy Implants: None Anesthesia: spinal Surgeon: Viola Ruvalcaba Sales Branch Manager #1: Ilana Sahu Estimated Blood Loss (ml): 600 IV fluids (ml): 1,500 Urine output (ml): 250 (clear yellow) Pathology: other (bilateral fallopian tubes) Condition: stable Disposition: floor Indications for Procedure: Ms. Last is a 37 year old at 39 weeks and 0 days who presents for primary section with bilateral salpingectomy secondary to breech position and desire for permanent sterilization. The risks, benefits, and alternatives to section were discussed with the patient including risk of bleeding, infection, damage to surrounding structures including bladder /bowels/ureters, and post-operative VTE. The patient is aware that bilateral salpingectomy is non-reversible and she will never be able to achieve again without IVF. The patient understands these risks and desires to proceed with section. Operative Findings: Colorless amniotic fluid, lisandro breech presentation of fetus. Viable male infant born with 1- and 5-minute apgars of 8 and 9, respectively. weighs 7 pounds and 9 ounces (3440 grams). Uterus noted to have a 5 centimeter pedunculated posterior wall fibroids. Bilateral fallopian tubes and ovaries are grossly normal appearing. Description of Procedure: The patient was taken to the operating room where spinal anesthesia was found to be adequate. Two grams of Ancef were given for infection prophylaxis. She was prepared and draped in the dorsal supine position with a leftward tilt. A Pfannenstiel skin incision was made with the scalpel. The incision was carried down to the fascia with a bovie. The fascia was incised and extended laterally with Levy scissors. The superior aspect of the fascia was grasped with Lindy clamps. The underlying rectus muscle was dissected off sharply with Levy scissors. In a similar fashion, the inferior aspect of the fascia was elevated with Lindy clamps and the rectus muscle and pyramidalis were dissected off. Excellent hemostasis was achieved with the bovie. The rectus muscle was in the midline down to the level of the pubic symphysis. Pre- peritoneal fatty tissue was bluntly dissected to expose the peritoneum. The peritoneum was found to be free of adherent bowel and entered sharply with Levy scissors. The peritoneal incision was extended superiorly and inferiorly to the bladder reflection with good visualization of the bladder. The bladder blade was inserted and vesicouterine peritoneum was identified. Intraabdominal survey revealed scant, clear peritoneal fluid and the thinned-out lower uterine segm ent. The bladder blade was repositioned to keep the bladder out of the operative field. The lower uterine segment was incised with a scalpel. The amniotic sac was ruptured with an Allis clamp and clear fluid was noted. The uterine incision was extended bluntly with lateral and upward traction. The fetus was in lisandro breech position. The buttocks was palpated and delivered gradually through the hysterotomy. Fundal pressure was continued and both legs were extended using the Pinard maneuver. With gentle pressure the legs and body gradually delivered. Once the scapula could be seen the baby was gently rotated and both arms were delivered using the Loveseat maneuver. Maintaining head flexion in a modified Malcvrbg-zeljfwa-fgoo maneuver the head was delivered without difficulty. The mouth and nose were suctioned with a bulb. The cord was clamped and cut. was noted to be spontaneously crying. The infant was handed off to the bridge club manager. IV oxytocin was initiated to facilitate uterine contractions. The placenta was delivered intact with manual massage of uterine fundus. The uterus was then exteriorized and the inside of the uterus was gently wiped with a lap sponge to assure complete removal of placental membranes. The uterine incision was closed with a 0-Polysorb suture in a running locked fashion. Two figure of eight sutures of 0-Polysorb were placed at the center of the incision for hemostasis. The ovaries and tubes were found to be normal. The Ligasure device was used to sequentially cauterize and cut from the fimbriated end of the right fallopian tube to the level of the right cornua, completely removing the right fallopian tube. This process was then repeated on the left. The uterus and ovaries were then gently returned to the abdominal cavity. The blood clots and fluid were wiped out of the abdomen and pelvis with moist laparotomy sponges. The pelvis was copiously suction irrigated.The uterine incision was reinspected and excellent hemostasis was noted. The fascial layer was closed with a 0-Vicryl suture. The subcutaneous tissue was reapproximated with 2-0 Plain Gut. The skin was closed with 4-0 Monocryl in a subcuticular fashion. The patient tolerated the procedure well. All the counts were correct times two. The patient was taken to the recovery room in a stable condition.
[2023-03-18] MEDS: ACETAMINOPHEN TAB 500 MG TAB PO SCH ×3 (12:18→23:50)
[2023-03-18] MEDS: KETOROLAC 15 MG/ML 1 ML VIAL IVP PRN ×2 (15:18→21:47)
[2023-03-18] MEDS ORDERED: FAMOTIDINE 20 MG/2 ML VIAL IV SCH (19:45)
[2023-03-18] MEDS: SENNOSIDES-DOCUSATE SODIUM 1 EACH TAB PO SCH (20:13)
[2023-03-18] MEDS: FAMOTIDINE 20 MG TAB PO SCH (20:13)
[2023-03-18] MEDS: HYDROmorphone 0.5 MG/0.5 ML SYRINGE IVP PRN (20:22)
[2023-03-19] MEDS: HYDROmorphone 0.5 MG/0.5 ML SYRINGE IVP PRN ×2 (01:49→05:10)
[2023-03-19] MEDS: KETOROLAC 15 MG/ML 1 ML VIAL IVP PRN (03:31)
[2023-03-19] MEDS: ACETAMINOPHEN TAB 500 MG TAB PO SCH ×3 (05:42→18:16)
[2023-03-19 07:32] LABS: Basophils # (A) 0.1 k/uL (0-0.2); Basophils % (A) 0 %; Eosinophils # (A) 0.1 k/uL (0-0.7); Eosinophils % (A) 0 %; HCT 34.9 % (34.0-46.0); HGB 12.1 gm/dL (11.4-16.0); Lymphocytes # (A) 3.1 k/uL (1.0-4.8); Lymphocytes % (A) 15 %; MCH 30.9 pg (25.0-35.0); MCHC 34.6 g/dL (31.0-37.0); MCV 89.4 fL (80.0-100.0); Mean Platelet Volume 10.3; Monocytes # (A) 0.9 k/uL (0-1.0); Monocytes % (A) 4 %; Neutrophils # (A) 15.5 k/uL (1.3-7.7); Neutrophils % (A) 78 %; Platelet Count 216 k/uL (150-450); RBC 3.91 m/uL (3.80-5.40); RDW 12.8 % (11.5-15.5); WBC 19.8 k/uL (3.8-10.6)
--- NOTE | 2023-03-19 08:00 | P.PNOBGPC ---
Subjective - Subjective Principal diagnosis: s/p primary section and bilateral salpingectomy Interval history: The patient is doing well this morning and had no acute events overnight. Having more pain this morning as the duramorph has worn off. She reports minimal lochia, passing flatus, voiding without difficulty, ambulating, and eating/drinking without nausea or vomiting. She is her infant without difficulty. She denies chest pain, shortness of breathing, fevers, or chills overnight. She denies pain or swelling in the legs. Patient reports: Reports appetite normal, Reports voiding normally, Reports pain well controlled, Reports ambulating normally [place]: doing well, nursing well Objective - Vital Signs Latest vital signs: Vital Signs Temp Pulse Resp BP Pulse Ox 03/19/23 05:47 18 03/19/23 03:44 97.5 F L 73 14 138/83 97 03/19/23 01:51 14 03/18/23 23:43 98.2 F 91 16 133/66 98 03/18/23 21:50 18 03/18/23 19:46 97.8 F 101 H 18 142/83 97 03/18/23 17:22 16 98 03/18/23 15:42 16 03/18/23 15:40 98.3 F 99 16 142/85 98 03/18/23 14:09 98 03/18/23 14:00 16 03/18/23 12:09 16 03/18/23 12:00 84 17 137/81 98 03/18/23 11:10 97.7 F 74 17 138/81 96 03/18/23 10:40 75 17 142/85 75 L 03/18/23 10:10 89 17 139/75 97 03/18/23 10:09 17 97 03/18/23 09:55 77 17 134/89 97 03/18/23 09:40 80 17 135/85 96 03/18/23 09:25 86 17 133/72 96 03/18/23 09:10 96.4 F L 90 17 118/88 97 03/18/23 09:09 17 97 Intake and Output 03/18/23 03/19/23 03/19/23 22:59 06:59 14:59 Intake Total 1110 Output Total 350 2200 Balance -350 -1090 Intake: IV 360 Oral 750 Output: Urine 350 2200 Straight 1000 Uretheral (Bo) 350 Other: # Voids 1 - Exam Extremities: Present: normal Abdomen: Present: normal appearance, soft Incision: Present: normal, dry, intact Uterus: Present: normal, firm - Labs Labs: Abnormal Lab Results - Last 24 Hours (Table) 03/19/23 Range/Units 07:13 WBC 19.8 H (3.8-10.6) k/uL Neutrophils # 15.5 H (1.3-7.7) k/uL Assessment and Plan Assessment: 37 year old POD#1 s/p primary section with bilateral salpingectomy Plan: 1. Postoperative. Meeting all postoperative milestones appropriately. Continue to monitor. 2. Viable male infant. Doing well at bedside, nursing well. Consented for circumcision this morning. 3. A2GDM. Will need 6 week 2 hour GTT. Dispo: Anticipate discharge home tomorrow.
[2023-03-19] MEDS: SENNOSIDES-DOCUSATE SODIUM 1 EACH TAB PO SCH ×2 (08:04→19:45)
[2023-03-19] MEDS: SIMETHICONE 80 MG CHEWABLE PO PRN ×2 (08:05→19:45)
--- NOTE | 2023-03-19 15:57 | P.PN ---
Progress Note - Text Progress Note Date: 03/19/23 Postoperative day 1 status post section under spinal anesthesia, and i ntrathecal morphine given for postoperative analgesia, patient doing well, there is no anesthesia related complications, Patient had no headache, vital signs stable , Assessment and plan= postop day 1 status post , doing well there is no anesthesia related complication., she is complaining of pain, which is managed with Oxy IR when necessary
[2023-03-19] MEDS: IBUPROFEN 600 MG TAB PO PRN (19:45)
[2023-03-19] MEDS: FAMOTIDINE 20 MG TAB PO SCH (19:46)
[2023-03-19] MEDS: LACTATED RINGERS 1,000 ML IV SCH ×2 (20:43→20:44)
[2023-03-20] MEDS: ACETAMINOPHEN TAB 500 MG TAB PO SCH ×5 (00:11→23:57)
[2023-03-20] MEDS: IBUPROFEN 600 MG TAB PO PRN ×4 (02:45→21:06)
--- NOTE | 2023-03-20 08:13 | P.PNOBGPC ---
Subjective - Subjective Principal diagnosis: s/p primary section with bilateral salpingectomy Interval history: The patient is doing well this morning and had no acute events overnight. She has no complaints this morning. She reports minimal lochia, passing flatus, voiding without difficulty, ambulating, and eating/drinking without nausea or vomiting. She is her infant without difficulty. She denies chest pain, shortness of breathing, fevers, or chills overnight. She denies pain or swelling in the legs. Patient reports: Reports appetite normal, Reports voiding normally, Reports pain well controlled, Reports ambulating normally Auxier: doing well Objective - Vital Signs Latest vital signs: Vital Signs Temp Pulse Resp BP Pulse Ox 03/20/23 00:15 98.0 F 79 18 139/86 97 03/19/23 16:00 97.9 F 96 16 135/81 03/19/23 10:00 16 Intake and Output 03/19/23 03/20/23 03/20/23 22:59 06:59 14:59 Other: # Voids 2 - Exam Extremities: Present: normal Abdomen: Present: normal appearance, soft Incision: Present: normal, dry, intact Uterus: Present: normal, firm Assessment and Plan Assessment: 37 year old POD#2 s/p primary section with bilateral salpingectomy Plan: 1. Postoperative. Meeting all postoperative milestones appropriately. Continue to monitor. 2. Viable male . Doing well at bedside, nursing well. s/p circumcision. 3. A2GDM. Will need 6 week 2 hour GTT. Dispo: Anticipate discharge home tomorrow.
[2023-03-20] MEDS: FAMOTIDINE 20 MG TAB PO SCH (08:27)
[2023-03-20] MEDS: SENNOSIDES-DOCUSATE SODIUM 1 EACH TAB PO SCH ×2 (08:27→21:06)
[2023-03-20] MEDS: SIMETHICONE 80 MG CHEWABLE PO PRN ×2 (11:11→17:40)
[2023-03-21] MEDS: IBUPROFEN 600 MG TAB PO PRN (02:55)
[2023-03-21] MEDS: ACETAMINOPHEN TAB 500 MG TAB PO SCH (05:50)
--- NOTE | 2023-03-21 08:27 | P.DS ---
Providers Date of admission: 03/18/23 06:07 Expected date of discharge: 03/21/23 Attending physician: Viola Ruvalcaba MD Primary care physician: Stated None Hospital Course: Ms. Last is a 37 year old now POD#3 s/p scheduled primary section with bilateral salpingectomy secondary to breech presentation. The patient is doing well this morning and had no acute events overnight. She has no complaints this morning. She reports minimal lochia, passing flatus, voiding without difficulty, ambulating, and eating/drinking without nausea or vomiting. Infant doing well at bedside, s/p circumcision. She denies chest pain, shortness of breathing, fevers, or chills overnight. She denies pain or swelling in the legs. Postoperative restrictions are reviewed with the patient including pelvic rest for 6 weeks, no lifting heavier than 15 pounds for 6 weeks. The patient is encouraged to call the office if she experiences any heavy bleeding, foul- smelling discharge, breast complaints, or any if she has any other concerns. She will follow up in the office with in 2 weeks for postoperative exam. The patient will be discharged home with Motrin, Tylenol, and a 3-day supply of Oxycodone 5mg. All questions are answered. Assessment: 37 year old POD#3 s/p primary section with bilateral salpingectomy secondary to breech presentation Patient Condition at Discharge: Good Plan - Discharge Summary Discharge Rx Participant: No New Discharge Prescriptions: New Ibuprofen [Motrin] 600 mg PO Q6HR PRN #30 tab PRN Reason: Mild Pain (Scale 1 To 3) oxyCODONE HCL [Roxicodone] 5 mg PO Q6HR PRN 3 Days #12 tab PRN Reason: Breakthrough Pain Acetaminophen Tab [Tylenol] 650 mg PO Q6H PRN #30 tab PRN Reason: Mild Pain (Scale 1 To 3) No Action Aspirin 81 mg PO DAILY Vit No.179/Iron/Folic [ Tablet] 1 tab PO DAILY Insulin Aspart [NovoLOG] 20 units SQ HS Discharge Medication List Aspirin 81 mg PO DAILY 03/18/23 [History] Insulin Aspart [NovoLOG] 20 units SQ HS 03/18/23 [History] Vit No.179/Iron/Folic [ Tablet] 1 tab PO DAILY 03/18/23 [History] Acetaminophen Tab [Tylenol] 650 mg PO Q6H PRN #30 tab 03/21/23 [Rx] Ibuprofen [Motrin] 600 mg PO Q6HR PRN #30 tab 03/21/23 [Rx] oxyCODONE HCL [Roxicodone] 5 mg PO Q6HR PRN 3 Days #12 tab 03/21/23 [Rx] Follow up Appointment(s)/Referral(s): Viola Ruvalcaba MD [STAFF PHYSICIAN] - 2 Weeks Activity/Diet/Wound Care/Special Instructions: Instructions 1. Do not begin any exercise program for 3 weeks. 2. Do not resume sexual relations for 6 weeks or longer if uncomfortable. 3. You may take tub baths or showers at any time. 4. You may use tampons if desired after 6 weeks. 5. Keep any areas repaired with stitches clean and dry. 6. If you are not nursing, wear a good fitting, supportive bra during the day and limit fluid intake for at least 1 week to prevent breast engorgement. 7. Call the office, , within the next week to make appointment for your 6 week checkup if it has not already been made. 8. Report any of the following occurrences to the doctor promptly: a. Heavy, excessive bleeding b. Chills, fever c. Burning or frequency of urination d. Pain or redness and breasts if nursing e. Increasing pain or swelling of vulva (stitches). In addition to the above instructions, the following additional should be followed: 1. No heavy lifting or straining (exercising) until after 6 week checkup. 2. Keep abdominal incision clean and dry: You may wear a dressing if more comfortable. 3. Make office appointment for 2 weeks after delivery date. Discharge Disposition: HOME SELF-CARE
[2023-03-21] MEDS: SIMETHICONE 80 MG CHEWABLE PO PRN (08:32)
[2023-03-21] MEDS: FAMOTIDINE 20 MG TAB PO SCH (08:32)
[2023-03-21] MEDS: SENNOSIDES-DOCUSATE SODIUM 1 EACH TAB PO SCH (08:36)
[2023-03-21 10:41] VITALS: BP 138/85; PULSE 90; RESP 20; TEMP 98.4
== END 2023-03-21 11:25 | disposition home or self-care (01) | DRG 539 ==
LOC: 4FBP 06:07
PROVIDERS: ADMIT Obstetrics & Gynecology; ATTEND Obstetrics & Gynecology
PROC: 10D00Z1 Extraction of Products of Conception, Low, Open Approach (ICD-10-PCS; principal; 2023-03-18 08:00)
PROC: 0UT70ZZ Resection of Bilateral Fallopian Tubes, Open Approach (ICD-10-PCS; principal; 2023-03-18 08:00)
DX: O32.1XX0 Maternal care for breech presentation, not applicable or unspecified (principal); O24.424 Gestational diabetes mellitus in childbirth, insulin controlled; O34.13 Maternal care for benign tumor of corpus uteri, third trimester; O99.02 Anemia complicating childbirth; D50.9 Iron deficiency anemia, unspecified; D25.9 Leiomyoma of uterus, unspecified; O99.824 Streptococcus B carrier state complicating childbirth; Z30.2 Encounter for sterilization; Z37.0 Single live birth; Z3A.39 39 weeks gestation of pregnancy; Z79.82 Long term (current) use of aspirin; Z79.4 Long term (current) use of insulin
CPT/HCPCS: 80306; 85025; 86850; 86900; 86901; 88302

== ENCOUNTER → 2023-03-29 | Outpatient (CLI) | payer OTHER ==
--- NOTE | 2023-03-29 15:40 | US ---
EXAMINATION TYPE: US venous doppler duplex LE RT DATE OF EXAM: 03/29/2023 3:25 PM COMPARISON: NONE CLINICAL INDICATION: Female, 37 years old with history of R22.4 1 LOCALIZED SWELLING; Novem tianna 6th Right leg swelling since SIDE PERFORMED: Right TECHNIQUE: The lower extremity deep venous system is examined utilizing real time linear array sonog dejan with graded compression, doppler sonography and color-flow sonography. VESSELS IMAGED: Common Femoral Vein Deep Femoral Vein Greater Saphenous Vein * Femoral Vein Popliteal Vein Small Saphenous Vein * Proximal Calf Veins (* superficial vessels) Right Leg: Negative for DVT Notified - Patient sent home IMPRESSION: Grayscale, color doppler, spectral doppler imaging performed of the deep veins of the lo wer extremities. There is normal flow, compressibility, vascular waveforms.
== END | disposition home or self-care (01) ==
LOC: RADUSWWP 15:03
PROVIDERS: ATTEND Obstetrics & Gynecology
DX: R22.41 Localized swelling, mass and lump, right lower limb (principal)

== ENCOUNTER 2023-07-22 18:48 | Emergency (ER) | payer OTHER ==
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
[2023-07-22 19:27] VITALS: TEMP 98.3
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
[2023-07-22] MEDS: FLUORESCEIN STRIPS 1 MG STRIP LEFT EYE ONE (20:06)
[2023-07-22] MEDS: ACETAMINOPHEN TAB 500 MG TAB PO STA (20:06)
[2023-07-22] MEDS: PROPARACAINE 0.5% OPHTH DROPS 15 ML BTL LEFT EYE STA (20:06)
[2023-07-22] MEDS: DIPH,PERTUS(ACELL)TETVAC-LF 0.5 ML VIAL IM ONE (21:43)
[2023-07-22] MEDS: AMOXIC-POT CLAV 875-125MG 1 EACH TAB PO STA (21:44)
[2023-07-22] MEDS ORDERED: AMOXIC-POT CLAV 875-125MG 1 EACH TAB PO STA (21:46)
[2023-07-22 22:03] VITALS: BP 171/82; PULSE 72; RESP 12
== END 2023-07-22 21:54 | disposition home or self-care (01) ==
LOC: EC 18:48
DX: S71.152A Open bite, left thigh, initial encounter (principal); S00.83XA Contusion of other part of head, initial encounter; Z23 Encounter for immunization; Y04.1XXA Assault by human bite, initial encounter; W50.3XXA Accidental bite by another person, initial encounter
CPT/HCPCS: 70450; 70486; 72125; 90471; 90715; 99284

== ENCOUNTER → 2023-09-26 | Outpatient (CLI) | payer OTHER ==
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
== END | disposition home or self-care (01) ==
LOC: RADXRMAIN 10:27
PROVIDERS: ATTEND Chiropractor
DX: M51.36 Other intervertebral disc degeneration, lumbar region (principal); M43.16 Spondylolisthesis, lumbar region
CPT/HCPCS: 72100; 72170; 72220

== ENCOUNTER 2024-03-11 15:34 | Emergency (ER) | payer OTHER ==
[2024-03-11 16:09] VITALS: TEMP 97.4
--- NOTE | 2024-03-11 16:14 | ED ---
General Adult HPI - General Source: patient, RN notes reviewed Mode of arrival: ambulatory Limitations: no limitations <Kate Sutherland - Last Filed: 03/11/24 16:12> <Joseph Camara - Last Filed: 03/12/24 00:05> - General Source: patient, RN notes reviewed, old records reviewed Mode of arrival: ambulatory Limitations: no limitations <Dev Chavez - Last Filed: 03/13/24 17:31> - General Chief complaint: Chest Pain Stated complaint: chest pain, SOB, abd pain Time Seen by Provider: 03/11/24 15:52 - History of Present Illness Initial comments: Quick [id number] female presents emergency room chief complaint of hematochezia that has been intermittent over the past 10 days. States he is also experiencing left-sided abdominal pain. Today she began to experience chest pain and mild shortness of breath. Denies previous surgical abdominal history. History of diverticulitis. No blood thinner use. (Kate Sutherland) This is a 38-year-old female with severe abdominal pain and GI bleed (Dev Chavez) - Related Data Home Medications Medication Instructions Recorded Confirmed Fluticasone Nasal [place] [Flonase 1 spray EA NOSTRIL DAILY 03/11/24 03/11/24 Nasal [place]] HYDROcodone/APAP 10-325MG [[place] 1 tab PO QID 03/11/24 03/11/24 10-325] Loratadine 10 mg PO DAILY 03/11/24 03/11/24 busPIRone HCl [Buspar] 10 mg PO TID PRN 03/11/24 03/11/24 traZODone HCL [Desyrel] 50 - 100 mg PO HS PRN 03/11/24 03/11/24 Allergies Allergy/AdvReac Type Severity Reaction Status Date / Time No Known Allergies Allergy Verified 03/11/24 21:07 Review of Systems ROS Other: All systems not noted in ROS Statement are negative. <Kate Sutherland - Last Filed: 03/11/24 16:12> ROS Other: All systems not noted in ROS Statement are negative. <Joseph Camara - Last Filed: 03/12/24 00:05> ROS Other: All systems not noted in ROS Statement are negative. <Dev Chavez - Last Filed: 03/13/24 17:31> ROS Statement: Those systems with pertinent positive or pertinent negative responses have been documented in the HPI. 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 Absent: scleral icterus, conjunctival injection, periorbital swelling ENT exam: Present: normal exam, mucous membranes moist Neck exam: Present: normal inspection. Absent: tenderness, meningismus, lymphadenopathy Respiratory exam: Present: normal lung sounds bilaterally. Absent: respiratory distress, wheezes, rales, rhonchi, stridor Cardiovascular Exam: Present: regular rate, normal rhythm, normal heart sounds. Absent: systolic murmur, diastolic murmur, rubs, gallop, clicks GI/Abdominal exam: Present: soft, normal bowel sounds. Absent: distended, tenderness, guarding, rebound, rigid Extremities exam: Present: normal inspection, full ROM, normal capillary refill. Absent: tenderness, pedal edema, joint swelling, calf tenderness Back exam: Present: normal inspection Neurological exam: Present: alert, oriented X3, CN II-XII intact Psychiatric exam: Present: normal affect, normal mood Skin exam: Present: warm, dry, intact, normal color. Absent: rash <Dev Chavez - Last Filed: 03/13/24 17:31> - General Exam Comments Initial Comments: Visual Physical Exam Vital signs reviewed General: Well-appearing, nontoxic, no acute distress. Head: Normocephalic, atraumatic Eyes: PERRLA, EOMI ENT: Airway patent Chest: Nonlabored breathing Skin: No visual rash, normal skin tone Neuro: Alert and oriented 3 Musculoskeletal: No gross abnormalities (Romeor,Kate) Course <Dev Chavez - Last Filed: 03/13/24 17:31> Vital Signs 03/11/24 03/11/24 03/12/24 16:06 22:03 01:13 Temperature 97.4 F L Pulse Rate 82 61 66 Respiratory 22 16 18 Rate Blood Pressure 115/79 121/83 117/82 O2 Sat by Pulse 99 98 98 Oximetry - Reevaluation(s) Reevaluation #1: 03/11/24 18:53 Medical records reviewed (Dev Chavez) Reevaluation #2: Patient symptoms are improved (Dev Chavez) Reevaluation #3: Patient informed of results and questions answered (Dev Chavez) Reevaluation #4: Was pt. sent in by a medical professional or institution (, PA, CARD PROCESSING CLERK, urgent care, hospital, or long term...) When possible be specific @ -no Did you speak to anyone other than the patient for history (EMS, parent, family, police, friend...)? What history was obtained from this source @ -no Did you review nursing and triage notes (agree or disagree)? Why? @ -agree Are old charts reviewed (outside hosp., previous admission, EMS record, old EKG, old radiological studies, urgent care reports/EKG's, long term records)? Report findings @ -yes Differential Diagnosis (chest pain, altered mental status, abdominal pain women, abdominal pain men, vaginal bleeding, weakness, fever, dyspnea, syncope, headache, dizziness, GI bleed, back pain, seizure, CVA, palpatations, mental health, musculoskeletal)? @ -prior EKG interpreted by me (3pts min.). @ -yes X-rays interpreted by me (1pt min.). @ -no CT interpreted by me (1pt min.). @ -yes negative for acute disease U/S interpreted by me (1pt. min.). @ -no What testing was considered but not performed or refused? (CT, X-rays, U/S, labs)? Why? @ -none What meds were considered but not given or refused? Why? @ -none Did you discuss the management of the patient with other professionals (professionals i.e. , PA, CARD PROCESSING CLERK, lab, RT, psych nurse, clinical social worker, network operations analyst, teacher, command and control officer, family independence case manager)? Give summary @ -no Was smoking cessation discussed for >3mins.? @ -no Was critical care preformed (if so, how long)? @ -no Were there social determinants of health that impacted care today? How? (Homelessness, low income, unemployed, alcoholism, drug addiction, transportation, low edu. Level, literacy, decrease access to med. care, retirement, rehab)? @ -none Was there de-escalation of care discussed even if they declined (Discuss DNR or withdrawal of care, Hospice)? DNR status @ -no What co-morbidities impacted this encounter? (DM, HTN, Smoking, COPD, CAD, Cancer, CVA, ARF, Chemo, Hep., AIDS, mental health diagnosis, sleep apnea, morbid obesity)? @ -none Was patient admitted / discharged? Hospital course, mention meds given and route, prescriptions, significant lab abnormalities, going to OR and other pertinent info. @ - 38 female to ER for nonspecific abdominal pain. No acute cause of symptoms found here in the ER patient can be discharged home Undiagnosed new problem with uncertain prognosis? @ -no Drug Therapy requiring intensive monitoring for toxicity (Heparin, Nitro, Insulin, Cardizem)? @ -no Were any procedures done? @ -no Diagnosis/symptom? @ -Abdominal pain NOS Acute, or Chronic, or Acute on Chronic? @ -Acute Uncomplicated (without systemic symptoms) or Complicated (systemic symptoms)? @ -Complicated Side effects of treatment? @ -no Exacerbation, Progression, or Severe Exacerbation? @ -exacerbation Poses a threat to life or bodily function? How? (Chest pain, [place], [place], pneumonia, PE, COPD, DKA, ARF, appy, cholecystitis, CVA, Diverticulitis, Homicidal, Suicidal, threat to staff... and all critical care pts) @ -no (Dev Chavez) Reevaluation #5: Differential Abdominal Pain Women: Appendicitis, Cholecystitis, diverticulosis, ischemic bowel, pancreatitis, hepatitis, UTI, gastroenteritis, AAA, incarcerated hernia, bowel obstruction, constipation, inflammatory bowel, hepatitis, peptic ulcer disease, splenic infarction, perforated viscus, vulvitis, ovarian torsion, PID, kidney stone, placenta abruption, this is not meant to be an all-inclusive list Differential GI Bleed: Esophageal varices, aortoenteric fistula, Jordyn-Alejandro, gastritis, peptic ulcer disease, diverticulosis, inflammatory bowel disease, hemorrhoids, fissure, colitis, malignancy, Meckel's diverticulum, this is not meant to be an all- inclusive list. (Dev Chavez) Medical Decision Making <Kate Sutherland - Last Filed: 03/11/24 16:12> - Lab Data Result diagrams: 03/11/24 16:30 03/11/24 16:30 <Joseph Camara - Last Filed: 03/12/24 00:05> - Lab Data Result diagrams: 03/11/24 16:30 03/11/24 16:30 - EKG Data -: EKG Interpreted by Me - Radiology Data Radiology results: report reviewed (CT abdomen pelvis is negative for acute disease), image reviewed <Dev Chavez - Last Filed: 03/13/24 17:31> - Medical Decision Making I completed the quick note portion of this chart signed Kate Sutherland PA-C (Kate Sutherland) 38 female to ER for nonspecific abdominal pain. No acute cause of symptoms found here in the ER patient can be discharged home (Dev Chavez) - Lab Data Lab Results 03/11/24 03/11/24 03/11/24 Range/Units 16:30 16:30 16:30 WBC 13.7 H (3.8-10.6) k/uL RBC 4.94 (3.80-5.40) m/uL Hgb 14.6 (11.4-16.0) gm/dL Hct 42.9 (34.0-46.0) % MCV 86.8 (80.0-100.0) fL MCH 29.5 (25.0-35.0) pg MCHC 33.9 (31.0-37.0) g/dL RDW 11.5 (11.5-15.5) % Plt Count 294 (150-450) k/uL MPV 8.2 Neutrophils % 70 % Lymphocytes % 23 % Monocytes % 4 % Eosinophils % 1 % Basophils % 1 % Neutrophils # 9.6 H (1.3-7.7) k/uL Lymphocytes # 3.1 (1.0-4.8) k/uL Monocytes # 0.5 (0-1.0) k/uL Eosinophils # 0.2 (0-0.7) k/uL Basophils # 0.1 (0-0.2) k/uL PT 9.9 L (10.0-12.5) sec INR 0.9 (<1.2) APTT 26.4 (22.0-30.0) sec Sodium 136 L (137-145) mmol/L Potassium 4.2 (3.5-5.1) mmol/L Chloride 106 (98-107) mmol/L Carbon Dioxide 20 L (22-30) mmol/L Anion Gap 10 mmol/L BUN 17 (7-17) mg/dL Creatinine 0.85 (0.52-1.04) mg/dL Est GFR (CKD-EPI)AfAm >90 (>60 ml/min/1.73 sqM) Est GFR (CKD-EPI)NonAf 89 (>60 ml/min/1.73 sqM) Glucose 90 (74-99) mg/dL Plasma Lactic Acid Beka (0.7-2.0) mmol/L Calcium 9.9 (8.4-10.2) mg/dL Magnesium 1.9 (1.6-2.3) mg/dL Total Bilirubin 0.4 (0.2-1.3) mg/dL AST 24 (14-36) U/L ALT 24 (4-34) U/L Alkaline Phosphatase 73 (38-126) U/L Troponin I (0.000-0.034) ng/mL Total Protein 7.7 (6.3-8.2) g/dL Albumin 4.5 (3.5-5.0) g/dL Amylase 41 (30-110) U/L Lipase 58 (23-300) U/L Blood Type Blood Type Recheck Bld Type Recheck Status Antibody Screen Spec Expiration Date 03/11/24 03/11/24 03/11/24 Range/Units 16:30 16:30 16:30 WBC (3.8-10.6) k/uL RBC (3.80-5.40) m/uL Hgb (11.4-16.0) gm/dL Hct (34.0-46.0) % MCV (80.0-100.0) fL MCH (25.0-35.0) pg MCHC (31.0-37.0) g/dL RDW (11.5-15.5) % Plt Count (150-450) k/uL MPV Neutrophils % % Lymphocytes % % Monocytes % % Eosinophils % % Basophils % % Neutrophils # (1.3-7.7) k/uL Lymphocytes # (1.0-4.8) k/uL Monocytes # (0-1.0) k/uL Eosinophils # (0-0.7) k/uL Basophils # (0-0.2) k/uL PT (10.0-12.5) sec INR (<1.2) APTT (22.0-30.0) sec Sodium (137-145) mmol/L Potassium (3.5-5.1) mmol/L Chloride (98-107) mmol/L Carbon Dioxide (22-30) mmol/L Anion Gap mmol/L BUN (7-17) mg/dL Creatinine (0.52-1.04) mg/dL Est GFR (CKD-EPI)AfAm (>60 ml/min/1.73 sqM) Est GFR (CKD-EPI)NonAf (>60 ml/min/1.73 sqM) Glucose (74-99) mg/dL Plasma Lactic Acid Bek[place] 0.9 (0.7-2.0) mmol/L Calcium (8.4-10.2) mg/dL Magnesium (1.6-2.3) mg/dL Total Bilirubin (0.2-1.3) mg/dL AST (14-36) U/L ALT (4-34) U/L Alkaline Phosphatase (38-126) U/L Troponin I <0.012 (0.000-0.034) ng/mL Total Protein (6.3-8.2) g/dL Albumin (3.5-5.0) g/dL Amylase (30-110) U/L Lipase (23-300) U/L Blood Type O Positive Blood Type Recheck O Pos Bld Type Recheck Status No Antibody Screen NEGATIVE Spec Expiration Date 03/14/20242329 Disposition <Kate Sutherland - Last Filed: 03/11/24 16:12> Is patient prescribed a controlled substance at d/c from ED?: No <Joseph Camara - Last Filed: 03/12/24 00:05> <Dev Chavez - Last Filed: 03/13/24 17:31> Clinical Impression: Abdominal pain Disposition: HOME SELF-CARE Condition: Good Instructions (If sedation given, give patient instructions): Abdominal Pain (ED) Referrals: Abad Hartley MD [Primary Care Provider] - 1-2 days
[2024-03-11 16:43] LABS: Basophils # (A) 0.1 k/uL (0-0.2); Basophils % (A) 1 %; Eosinophils # (A) 0.2 k/uL (0-0.7); Eosinophils % (A) 1 %; HCT 42.9 % (34.0-46.0); HGB 14.6 gm/dL (11.4-16.0); Lymphocytes # (A) 3.1 k/uL (1.0-4.8); Lymphocytes % (A) 23 %; MCH 29.5 pg (25.0-35.0); MCHC 33.9 g/dL (31.0-37.0); MCV 86.8 fL (80.0-100.0); Mean Platelet Volume 8.2; Monocytes # (A) 0.5 k/uL (0-1.0); Monocytes % (A) 4 %; Neutrophils # (A) 9.6 k/uL (1.3-7.7); Neutrophils % (A) 70 %; Platelet Count 294 k/uL (150-450); RBC 4.94 m/uL (3.80-5.40); RDW 11.5 % (11.5-15.5); WBC 13.7 k/uL (3.8-10.6)
[2024-03-11 16:53] LABS: INR 0.9 (<1.2); Partial Thromboplastin Time 26.4 sec (22.0-30.0); Prothrombin Time 9.9 sec (10.0-12.5)
[2024-03-11 16:59] LABS: ALT 24 U/L (4-34); AST 24 U/L (14-36); African American GFR (CKD) >90 (>60 ml/min/1.73 sqM); Albumin 4.5 g/dL (3.5-5.0); Alkaline Phosphatase 73 U/L (38-126); Amylase 41 U/L (30-110); Anion Gap 10 mmol/L; Blood Urea Nitrogen 17 mg/dL (7-17); Calcium 9.9 mg/dL (8.4-10.2); Carbon Dioxide 20 mmol/L (22-30); Chloride 106 mmol/L (98-107); Glucose 90 mg/dL (74-99); Lipase 58 U/L (23-300); Magnesium 1.9 mg/dL (1.6-2.3); Non-African American GFR(CKD) 89 (>60 ml/min/1.73 sqM); Potassium 4.2 mmol/L (3.5-5.1); Sodium 136 mmol/L (137-145); Total Bilirubin 0.4 mg/dL (0.2-1.3); Total Protein 7.7 g/dL (6.3-8.2)
[2024-03-11] MEDS: ONDANSETRON 4 MG/2 ML VIAL IVP STA (19:28)
[2024-03-11] MEDS: HYDROmorphone 1 MG/ML 1 ML SYRINGE IVP STA (19:28)
[2024-03-11] MEDS: SODIUM CHLORIDE 0.9% 1,000 ML IV STA (19:29)
[2024-03-11] MEDS: PANTOPRAZOLE 40 MG/10 ML VIAL IVP STA (19:29)
--- NOTE | 2024-03-11 20:50 | CT ---
EXAMINATION TYPE: CT abdomen pelvis w con DATE OF EXAM: 03/11/2024 COMPARISON: 05/31/2019 INDICATION: left side pain DLP: 1239.6 mGycm, Automated exposure control for dose reduction was used. CONTRAST: 100 mL of Isovue 300. Study performed without Oral Contrast TECHNIQUE: Axial images were obtained from above the diaphragm to the pubic rami in the axial plane a t 5 mm thick sections. Reconstructed images are reviewed on the computer in the coronal plane. FINDINGS: Limited CT sections are obtained the lung bases. The lung bases are clear. CT ABDOMEN: Liver: Normal Spleen: Normal Pancreas: Normal Adrenal glands: The adrenal glands are normal. Gallbladder: Normal Kidneys: No masses are evident. No hydronephrosis is present. No cysts are present. Delayed images were obtained through the kidneys, which remain unremarkable. Aorta: Normal Inferior vena cava: Normal. CT PELVIS: Loops of bowel within the abdomen and pelvis are normal. This study is without oral contrast limi ts bowel evaluation. Appendix: Normal as visualized. Urinary bladder: Normal. Genitourinary structures: Uterus is unremarkable. Adnexa are normal Osseous structures: No suspicious lytic or sclerotic lesions. IMPRESSION: 1. No suspicious acute abnormality to account for left-sided pain. Follow-up can be performed as cli nically indicated. [facility], Workstation: [email or web address], 03/11/2024 8:48 PM
[2024-03-12] MEDS: HYDROmorphone 1 MG/ML 1 ML SYRINGE IVP STA (00:35)
[2024-03-12 01:17] VITALS: BP 117/82; PULSE 66; RESP 18
== END 2024-03-12 01:19 | disposition home or self-care (01) ==
LOC: EC 15:34
DX: R10.9 Unspecified abdominal pain (principal)
CPT/HCPCS: 36415; 93005; 86900; 86901; 80053; 82150; 83605; 83690; 83735; 84484; 85025; 85610; 85730; 86850; 74177; 99285; 96374; 96375 ×2; 96361 ×2; J2405; J1171 ×2; Q9967; J2470

== ENCOUNTER → 2024-03-13 | Outpatient (CLI) | payer OTHER ==
--- NOTE | 2024-03-13 09:20 | US ---
EXAMINATION TYPE: US abdomen complete DATE OF EXAM: 03/13/2024 COMPARISON: CT abdomen pelvis 03/11/2024 CLINICAL INDICATION: Female, 38 years old with history of R10.84 Generalized abd pain; R19.5 OTHER FE ADAIR ABN; Blood in the stool. TECHNIQUE: Grayscale and color Doppler imaging of the abdomen was performed. FINDINGS: EXAM MEASUREMENTS: Liver Length: 16.4 cm Gallbladder Wall: .2 cm CBD: .7 cm Spleen: 11.5 cm Right Kidney: 10.6 x 3.7 x 3.4 cm Left Kidney: 11.2 x 5.1 x 5.1 cm Pancreas: Tail obscured by overlying bowel gas Liver: wnl Gallbladder: Echogenic area seen Evidence for sonographic Mccullough's sign: no CBD: wnl Spleen: wnl Right Kidney: wnl Left Kidney: wnl Upper IVC: wnl Abd Aorta: wnl The liver is homogenous. The intrahepatic portion of the IVC and proximal abdominal aorta are within normal limits. There is evidence of nonshadowing gallstones in the gallbladder lumen.. Common bile duct is unremarkable. The visualized portions of the pancreas are homogenous. The spleen is unremar kable. Kidneys are symmetric and free of hydronephrosis. No renal lesions are seen. IMPRESSION: 1. No evidence for acute process. 2. Dependent layering gallstones present. [facility], , 03/13/2024 9:17 AM
--- NOTE | 2024-03-13 09:22 | US ---
EXAMINATION TYPE: US pelvic complete DATE OF EXAM: 03/13/2024 COMPARISON: NONE CLINICAL INDICATION: Female, 38 years old with history of R10.84 Generalized abd pain; R19.5 OTHER FE ADAIR ABN; Blood in the urine. TECHNIQUE: Transabdominal (TA). Grayscale imaging of the pelvis. FINDINGS: EXAM MEASUREMENTS: Uterus: 7.9 x 3.7 x 5.3 cm Endometrial Stripe: 0.5 cm Right Ovary: 2.3 x 1.1 x 2.5 cm Left Ovary: 1.4 x 1.8 x 1.0 cm 1. Uterus: Anteverted wnl 2. Endometrium: wnl 3. Right Ovary: wnl 4. Left Ovary: wnl 5. Bilateral Adnexa: wnl 6. Posterior cul-de-sac: wnl IMPRESSION: No evidence for acute pelvic process. [facility], , 03/13/2024 9:20 AM
== END | disposition home or self-care (01) ==
LOC: RADUSWWP 07:47
PROVIDERS: ATTEND Family Medicine
DX: K80.20 Calculus of gallbladder without cholecystitis without obstruction (principal); R19.5 Other fecal abnormalities
CPT/HCPCS: 76700; 76856

== ENCOUNTER → 2024-03-31 | Outpatient (CLI) | payer OTHER ==
--- NOTE | 2024-03-31 22:29 | MR ---
EXAMINATION TYPE: MR lumbar spine wo/w con DATE OF EXAM: 03/31/2024 8:27 PM COMPARISON: 03/11/2023 4. CLINICAL INDICATION: Female, 38 years old with history of R94.131, M54.5; PHH, Lower back pain into b oth legs x2 years, Abnormal EMG, Hx of 3-4 benign tumors removed from low back 15 yrs ago, TECHNIQUE: Multi planar, multi sequence imaging was performed utilizing: T1-weighted, T2-weighted, a nd turbo inversion recovery imaging of the lumbar spine. IV Contrast: 9.5 mL Gadobutrol (None, if empty) FINDINGS: Alignment: The lumbar vertebral bodies have preserved heights with grade 1 anterolisthesis of L4 on L 5. Cord: The conus medullaris and the distal spinal cord appear unremarkable with regards to their signa l intensity and morphology. Bones/Discs: Mild degeneration changes throughout the spine with osteophyte formation and facet joint arthropathy. Intervertebral disc signal is maintained. Mild increased STIR signal suggestive of thompson a in the pedicles of L4. Disc desiccation at L4-L5. Reactive postcontrast enhancement around the L3-L 4 and L4-L5 facet joints. T12-L1: No evidence of significant spinal canal stenosis or neural foraminal stenosis. L1-L2: No evidence of significant spinal canal stenosis or neural foraminal stenosis. L2-L3: No evidence of significant spinal canal stenosis or neural foraminal stenosis. L3-L4: No evidence of significant spinal canal stenosis. Facet joint arthropathy mild bilateral neura l foraminal stenosis. Synovial cyst seen near the left facet joint posteriorly. L4-L5: Disc uncovering from grade 1 anterolisthesis and facet joint arthropathy with mild spinal alana l stenosis and mild bilateral neural foraminal stenosis. Trace bilateral pleural effusions. L5-S1: The disc has a rounded posterior morphology without significant spinal canal stenosis. Facet j oint arthropathy with mild bilateral neural foraminal stenosis. No significant spinal canal or neural foraminal stenosis in the remainder of the visualized levels. Other findings: None. IMPRESSION: 1. No definitive evidence of disc herniation or significant spinal canal stenosis. 2. Mild disc degeneration with associated osteoarthritic changes. 3. Grade 1 anterolisthesis of L4 and L5 with mild spinal canal stenosis. No evidence for neural fora jackelyn stenosis. Mild stress reaction edema at the pedicles of L4. 4. Suspected reactive enhancement near the bilateral facets of L3-L4 and L4-L5. [facility], Workstation: [id number], 03/31/2024 10:27 PM
== END | disposition home or self-care (01) ==
LOC: RADMRIMAIN 19:15
PROVIDERS: ATTEND Family Medicine
DX: M43.16 Spondylolisthesis, lumbar region (principal); M51.360 Other intervertebral disc degeneration, lumbar region with discogenic back pain only; M48.061 Spinal stenosis, lumbar region without neurogenic claudication; R94.131 Abnormal electromyogram [EMG]
CPT/HCPCS: 72158; A9585